=== PATIENT | female | born 1960 | race Caucasian/White ===

== ENCOUNTER 2018-08-19 17:45 | Emergency (ER) | payer MEDICAID ==
[2018-08-19] MEDS: KETOROLAC 30 MG INJ IM (19:42)
[2018-08-19] MEDS: DEXAMETHASONE 10 MG/ML 1 ML INJ IM (19:43)
[2018-08-19] MEDS: LORAZEPAM 0.5 MG TAB PO (21:19)
== END 2018-08-19 21:38 | disposition home or self-care (01) ==
LOC: FTE 17:45
DX: S40.011A Contusion of right shoulder, initial encounter (principal); F17.210 Nicotine dependence, cigarettes, uncomplicated; V49.50XA Passenger injured in collision with unspecified motor vehicles in traffic accident, initial encounter
CPT/HCPCS: 70450; 73030-RT

== ENCOUNTER 2018-08-24 21:23 | Emergency (ER) | payer MEDICAID ==
[2018-08-25] MEDS: LORAZEPAM 2 MG INJ IM (00:08)
[2018-08-25] MEDS: KETOROLAC 60 MG INJ IM (00:08)
== END 2018-08-25 01:40 | disposition home or self-care (01) ==
LOC: E/R 08-25 01:40
DX: R10.84 Generalized abdominal pain (principal); E03.9 Hypothyroidism, unspecified; F17.210 Nicotine dependence, cigarettes, uncomplicated
CPT/HCPCS: 73030; 73030-RT; 74176; 96372; 99285-25

== ENCOUNTER 2018-09-05 14:58 | Emergency (ER) | payer MEDICAID ==
[2018-09-05] MEDS: DEXAMETHASONE 10 MG/ML 1 ML INJ IM (16:37)
[2018-09-05] MEDS: KETOROLAC 30 MG INJ IM (16:38)
[2018-09-05] MEDS: LORAZEPAM 1 MG TAB PO (16:41)
== END 2018-09-05 18:17 | disposition home or self-care (01) ==
LOC: FTE 18:17
DX: M54.5 Low back pain (principal); F17.210 Nicotine dependence, cigarettes, uncomplicated; M25.512 Pain in left shoulder
CPT/HCPCS: 72131; 96372; 99285-25

== ENCOUNTER 2018-09-08 20:54 | Emergency (ER) | payer MEDICAID ==
[2018-09-09 00:35] LABS: ADD MAN DIFF? NO
[2018-09-09 00:37] LABS: WHITE BLOOD COUNT 10.9 10^3/ul (4.8-10.8)
[2018-09-09 00:37] LABS: BASOPHIL # 0.1 10^3/ul (0.0-0.1); BASOPHILS % 0.6 % (0.0-2.0); EOSINOPHILS % 0.1 % (0.0-7.0); HEMATOCRIT 42.1 % (37.0-47.0); HEMOGLOBIN 14.1 g/dl (12.0-16.0); LYMPHOCYTES # 3.9 10^3/ul (0.8-2.9); LYMPHOCYTES % 36.3 % (15.0-51.0); MEAN CORPUSCULAR HEMOGLOBIN 29.9 pg (29.0-33.0); MEAN CORPUSCULAR HGB CONC 33.5 g/dl (32.0-37.0); MEAN CORPUSCULAR VOLUME 89.4 fl (82.0-101.0); MEAN PLATELET VOLUME 10.2 fl (7.4-10.4); MONOCYTES % 8.9 % (0.0-11.0); NEUTROPHIL # 5.8 10^3/ul (1.6-7.5); NEUTROPHILS % 53.5 % (39.0-77.0); PLATELET COUNT 216 10^3/UL (140-415); RED BLOOD COUNT 4.71 10^6/ul (4.20-5.40); RED CELL DISTRIBUTION WIDTH 12.5 % (11.5-14.5)
[2018-09-09] MEDS: morphine 4 MG/ML VIAL IV (00:53)
[2018-09-09] MEDS: ONDANSETRON 4 MG INJ IV (00:53)
[2018-09-09 00:57] LABS: INR 0.82; PROTIME 11.4 Sec (11.9-14.9); PT RATIO 0.9
[2018-09-09 00:58] LABS: PARTIAL THROMBOPLASTIN TIME 29.2 Sec (23.0-35.0)
[2018-09-09 01:00] LABS: ANION GAP 8 (5-13); BLOOD UREA NITROGEN 17 mg/dl (7-20); CALCIUM 9.2 mg/dl (8.4-10.2); CARBON DIOXIDE 26 mmol/L (21-31); CHLORIDE 106 mmol/L (97-110); CREATININE 0.59 mg/dl (0.44-1.00); Estimated GFR > 60 mL/min (>60); GLUCOSE 104 mg/dl (70-220); POTASSIUM 3.7 mmol/L (3.5-5.1); SODIUM 140 mmol/L (135-144)
[2018-09-09 01:12] LABS: TROPONIN-I < 0.012 ng/ml (0.000-0.120)
== END 2018-09-09 01:43 | disposition home or self-care (01) ==
LOC: E/R 09-09 01:43
DX: I10 Essential (primary) hypertension (principal); F17.210 Nicotine dependence, cigarettes, uncomplicated
CPT/HCPCS: 36415; 70450; 71045; 80048; 84484; 85025; 85610; 85730; 93005; 96374; 96375; 99285-25